=== PATIENT | female | born 1940 | race Caucasian/White ===

== ENCOUNTER → 2017-01-28 | Day surgery (SDC) | payer OTHER ==
[~2017-01-28] MED LIST: ADVIL200 M2 PO; ALTACE5 M1; ASPIRIN81 M1; ASPIRIN81 M2 PO; BUSPIRONE HCL7.5 MG PO; CALTRATE 600+D PO; CARVEDILOL12.5 MG PO; CARVEDILOL25 MG PO; COREG; CRESTOR PO; CYMBALTA PO; DULOXETINE HCL60 MG PO; FENOFIBRATE134 MG PO; FISH OIL 1,0001 CAP PO; FISH OIL 1,2001 CAP; FISH OIL 1,2001 EAC2 PO; HYDROCODON-ACE1 EAC5 PO; LEVAQUIN PO; LOSARTAN POTASS50 MG PO; METOPROLOL PO; NITROGLYGERIN0.4 MG SL; OMEPRAZOLE20 M1 PO; PRILOSEC20 M1 PO; SIMVASTATIN40 MG PO; TRICOR PO; TRICOR134 MG PO; TYLENOL #3 PO; VITAMIN B122500 MCG PO; VITAMIN D1000 UNI1 PO; VITAMIN D2 PO; VITAMIN E400 UNI2
--- NOTE | ~2017-01-28 | OR ---
Unit #: [id number] #: [id number] Patient: ALESHIA GUTIERREZ [id number] [address] [address] [id number] MR#: [id number] NAME: ALESHIA GUTIERREZ ROOM: Date of Procedure: 01/28/2017 Admission Date: 01/28/2017 Surgeon: Franki Bland M.D. : 1940 Attending Physician: Franki Bland M.D. Referring Physician: Franki Bland M.D. OPERATIVE REPORT PREOPERATIVE DIAGNOSES Back pain, radiculopathy, degenerative disk disease, spondylolisthesis, spinal stenosis. POSTOPERATIVE DIAGNOSES Back pain, radiculopathy, degenerative disk disease, spondylolisthesis, spinal stenosis. PROCEDURE PERFORMED Lumbar epidural steroid injection with intravenous sedation and fluoroscopic guidance for needle localization. INDICATIONS FOR PROCEDURE The patient is a 76-year-old female with return of back and right greater than left lower extremity pain due to previously mentioned nonsurgical diagnosis. She failed conservative treatments. She has done very well with single epidural steroid injections. Last injection was done 6 months ago. She did very well until the last month and a half or so. She certainly had prior to that, where she had done well for about 6 months with a single injection. Based on history, pathology, and symptomatology, we are going to proceed with a repeat injection today. DESCRIPTION OF PROCEDURE The patient was placed in a seated position. Standard monitors were applied. 1 mg of Versed was given for sedation and anxiolysis, which was adequate. Vital signs remained stable. Sterile prep and drape then of the lumbar area was performed. The skin then at the L4-L5 level was localized with 1% lidocaine. An 18-gauge Rouxbetead needle was then advanced via loss of resistance technique and fluoroscopic guidance in toward the epidural space. After confirming proper positioning with fluoroscopy and radiographic contrast, 80 mg of Depo-Medrol and 4 mL of 0.5% lidocaine were deposited. The patient tolerated the procedure otherwise well and was discharged to the recovery room in stable condition. Dictated by... Franki Bland M.D. LHP/modl Unit #: [id number] #: [id number] Patient: ALESHIA GUTIERREZ TD: 01/28/2017 20:26 JOB #: [id number] OPERATIVE REPORT Page 1 of 1 X Franki Bland MD X PROCEDURE OPERATIVE NOTE
== END | disposition home or self-care (01) ==
LOC: CCSC 09:42
DX: M51.16 Intervertebral disc disorders with radiculopathy, lumbar region (principal); M43.16 Spondylolisthesis, lumbar region; M48.06 Spinal stenosis, lumbar region; J44.9 Chronic obstructive pulmonary disease, unspecified; I10 Essential (primary) hypertension; K21.9 Gastro-esophageal reflux disease without esophagitis
CPT/HCPCS: J1040; J2250